=== PATIENT | female | born 1965 ===

== ENCOUNTER 2016-11-19 07:44 | Emergency (ER) | payer SELFPAY ==
[2016-11-19] MEDS ORDERED: TOBRAMYCIN 0.3% - 5 ML EYE DROPS EACH EYE ONE (07:57)
[2016-11-19] MEDS ORDERED: FLUORESCEIN 1 MG EYE STRIP RIGHT EYE ONE (07:57)
[2016-11-19] MEDS ORDERED: Tetracaine Ophth Soln 0.5% 40 DRP/4 ML BOTTLE RIGHT EYE ONE (07:57)
[2016-11-19 08:08] VITALS: RESP 16; TEMP 98.3
[2016-11-19] MEDS ORDERED: KETOROLAC 60 MG/2 ML VIAL IM ONE (08:17)
--- NOTE | 2016-11-19 08:24 | PDOC ---
Eye Complaint HPI - General Chief Complaint: Eye Problem / Injury Stated Complaint: right eye pain Date Seen by Provider: 11/19/16 Time Seen by Provider: 08:00 Source: POSITIVE: Patient Exam Limitations: POSITIVE: No limitations Nurse's Notes Reviewed & Considered: Yes - History of Present Illness Initial Comments: This pleasant 51-year-old female comes in today with a chief complaint of right eye pain. Patient awoke this morning with increased erythema of her right eye, tearing, and pain with throbbing. She does have photophobia. 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 She is also complaining of left ankle pain. She had an ankle fracture in June , and was placed into a walking boot. A one-week ago while working at [employer], she felt a pop in her ankle while in her boot. Since then she has had throbbing pain in her ankle. She denies any fever chills or sweats, nausea vomiting or diarrhea, no chest pain or shortness of breath, no cough, no abdominal pain, no myalgias, no hematuria or dysuria, no rashes. Have you received a tetanus shot in the past 10 years?: Yes Location: Right Eye Timing: REPORTS: Abrupt Duration: <24 hours Severity: Moderate Quality: REPORTS: Burning, Throbbing, Itching Recent Injury: REPORTS: No Associated Symptoms: REPORTS: Pain, Burning, Itching, Sensitivity to Light, Redness, Foreign Body Sensation Context: REPORTS: [place] [facility] Location at Time of Onset: REPORTS: Home Similar Symptoms Previously: Yes (L eye 5 yr ago resulting in ulcer, herniation and enucleation) - Patient Home Medications Home Medications: Home Medications NK [No Home Medications Reported] 11/19/16 - Patient Allergies Allergies/Adverse Reactions: Allergies Allergy/AdvReac Type Severity Reaction Status Date / Time No Known Allergies Allergy Unverified 11/19/16 07:45 Past Medical History - heen HEENT History: Other (please comment) Additional HEENT History: LEFT CORNEAL ULCER HERNIATION. LEFT EYE REMOVED Cardiovascular History: Denies History Respiratory History: Denies History Gastrointestinal History: Denies History Genitourinary History: Denies History Endocrine History: Denies History Musculoskeletal History: Denies History Prosthesis or Implant: No Neurological History: Denies History Blood Disorders: Denies History Psychiatric History: Denies History History of Sexually Transmitted Diseases: No Female Reproductive History: Other (please comment) Additional Female Reproductive History: TUBAL LIGATION LMP: 09/2016 Obstetrical History: Denies History Cancer History: Denies History In Past Year Been Physically Harmed or Verbally Threatened: No History of MDRO: No History of Other Communicable Diseases: No Tobacco Use: Current Every Day Smoker Alcohol Use: None Substance Use Type: None Anesthesia Reactions: No Malignant Hyperthermia: No Family History of Malignant Hyperthermia: No Significant Family History: No pertinent family hx ROS Constitution: REPORTS: Denies Symptoms Cardiovascular: REPORTS: Denies Cardiac Symptoms Respiratory: REPORTS: Denies Resp Symptoms Neurological: REPORTS: Denies Neuro Symptoms Gastrointestinal: REPORTS: Denies GI Symptoms Endocrine: REPORTS: Denies Symptoms Musculoskeletal: REPORTS: Joint Pain (Left ankle pain) Genitourinary: REPORTS: Denies Symptoms Eyes: REPORTS: Eye Pain (rt eye), Red Eyes, Itching Eyes, Eye Drainage ENT: REPORTS: Denies Symptoms Skin: REPORTS: Denies Skin Symptoms Lympathic: REPORTS: Denies Lympathic Symptoms Immunologic: POSITIVE: Denies Symptoms Psychiatric: POSITIVE: Denies Psych Symptoms Eye Complaint Physical Exam - General Appearance General Appearance: POSITIVE: Alert, Cooperative, No Acute Distress, No Evidence of Trauma, Other (Patient also complaining of left ankle pain. Her ankle is normal in appearance, no swelling, no bruising, no erythema. There is no tenderness to palpation.) - Visual Acuity / Pupil Size Pupil Size: 5 mm: Right - HEENT Head / Face: POSITIVE: Atraumatic, Normal Inspection, No Facial Swelling Eyes: POSITIVE: Inspection Normal, EOM's Intact, Eyelids Uninjured, Fluorescein Exam Normal, No Nystagmus, No Globe Trauma, Sclera Normal, Normal Corneal Inspection, Other (Left eye enucleation) Ears: POSITIVE: Ears Normal Inspection, Auricle Normal Nose: POSITIVE: Inspection Normal, No Apparent Trauma, Nares Normal, No CSF Leak Oropharynx: POSITIVE: External Inspection Nml, Pharynx Inspect. Nml, Airway Intact, Voice Normal, Moist Mucous Membranes, No Oral Injury, Lips Normal, Gums Normal, No Drooling, No Thrush, Normal Gag Reflex Dental: POSITIVE: No Dental Injury - Skin Skin: POSITIVE: Normal Color, No Skin Rash - Respiratory / Cardiovascular Respiratory / CVS: POSITIVE: No Respiratory Distress Peripheral Pulses: Dorsalis-pedis (R): 4+ Procedures - Laceration/Wound Repair Did patient have a laceration repair: No Eye Complaint Progress - Results Reviewed by me Xrays/CTs/US Reviewed by me: Yes Discussed with Radiologist: Yes - Patient's Progress Re-Examine Time:: 09:05 Status: POSITIVE: Improved MDM / ED Course: Patient was evaluated. X-ray of her left ankle was obtained. She received tetracaine and Tobrex ophthalmic drops.. Assessment: #1 conjunctivitis versus uveitis. #2 left ankle pain. Plan: TobraDex ophthalmic drops every 4 hours. Follow-up with Dr. Venegas in [facility] today. - Consult Consult (If Yes, Name of Consulting MD & Time Called): Yes (Dr. Armin Venegas, [facility], [id number]) Consulting MD will see pt:: POSITIVE: In Office Counseled: POSITIVE: Patient, RE: Radiology Results, RE: DX, RE: Need for F/U Patient Care Time - Estimated PCT Patient Care Time (In Minutes): 20 Vital Signs - Recent Vital Signs Vital Signs: Vital Signs (Last 8 hours) Temp Pulse Pulse Resp BP Pulse Ox 11/19/16 07:53 98.3 F 70 16 136/85 100 11/19/16 07:44 98.3 F 70 14 136/85 100 - VS Reviewed Vital Signs Reviewed: Yes Discharge Clinical Impression: Blindness of one eye, Eye infection Discharge Disposition: Discharged to Home Condition: Stable Patient Instructions Given at Discharge: Conjunctivitis (ED)
--- NOTE | 2016-11-19 08:50 | DI ---
XR ANKLE COMPLETE MIN 3VW,11/19/2016 8:17 AM: Clinical History: Left ankle injury. Previous Exam: None at this facility. Findings: 3 views of the left ankle are obtained, and demonstrate anatomic alignment without fractures. There i s mild enthesopathy at the insertion of the Achilles tendon and the plantar fascia. Impression: No fractures.
== END 2016-11-19 09:15 | disposition home or self-care (01) ==
LOC: ER 07:44
DX: H44.001 Unspecified purulent endophthalmitis, right eye (principal); H54.41 Blindness, right eye, normal vision left eye; H53.141 Visual discomfort, right eye; M25.572 Pain in left ankle and joints of left foot; H57.11 Ocular pain, right eye
CPT/HCPCS: 73610; 96374; 99283 ×2; J1885

== ENCOUNTER 2018-04-01 12:33 | Observation (INO) ==
[~2018-04-01 12:33] MED LIST: CefOXitin Inj 2 GM in Sodium Chloride 0.9% 100 ML IV ONE; LIDOCAINE W/ SODIUM BICARB 0.5 ML SYR ONE; LIDOCAINE W/ SODIUM BICARB 0.5 ML SYR SUBD PRN; Lactated Ringers 2,000 ML PRIMARY IV ONE; Nasal Sanitizer POPSWAB ampule 3 AMP (Nozin) PREOP DOSE ENOS SCH; Sodium Chloride 0.9% 100 ML IV ONE
[2018-04-01 12:52] LABS: BILIRUBIN,URINE NEGATIVE (NEG); CLARITY,URINE CLEAR (CLEAR); COLOR,URINE YELLOW (Y); GLUCOSE, URINE (UA) NEGATIVE (NEG); OCCULT BLOOD,URINE Trace-intact (NEG); PROTEIN,URINE NEGATIVE (NEG); UROBILINOGEN,URINE 0.2 EU/dL (0.2)
[2018-04-01 12:56] LABS: RBC,URINE 0-1 /hpf; SQUAMOUS EPITHELIAL CELL,UR MODERATE; URINE SAMPLE TYPE CLEAN CATCH URINE
[2018-04-01] MEDS: Lactated Ringers 1,000 ML PRIMARY IV SCH ×3 (13:00→21:06)
[2018-04-01 13:22] LABS: Hemoglobin [HGB] 11.8 g/dL (12.0-16.0)
[2018-04-01] MEDS ORDERED: PROPOFOL 10 MG/1 ML (200 MG/20 ML) VIAL IV ONE (14:08)
[2018-04-01] MEDS ORDERED: fentaNYL Inj 250 MCG/5 ML VIAL ONE (14:08)
[2018-04-01] MEDS ORDERED: MIDAZOLAM HCL 2 MG/2 ML VIAL ONE (14:08)
[2018-04-01] MEDS ORDERED: LIDOCAINE MPF 2% - 5 ML (20 MG/1 ML) ONE (14:08)
[2018-04-01] MEDS ORDERED: ROCURONIUM 10 MG/1 ML - 5 ML VIAL IVP ONE (14:09)
[2018-04-01] MEDS ORDERED: LIDOCAINE HCL 2 % 10 ML JELLY URO-JECT TOPICAL ONE ×2 (15:21→16:22)
[2018-04-01] MEDS ORDERED: BUPIVACAINE 0.5% W/ EPI - 10 ML VIAL ONE (15:21)
[2018-04-01] MEDS ORDERED: Opium-Belladonna 30-16.2mg 1 EACH SUPP.RECT RECTAL ONE ×2 (15:22→16:22)
[2018-04-01] MEDS ORDERED: KETAMINE 100 MG/1 ML - 5 ML ONE (16:21)
[2018-04-01] MEDS ORDERED: Lactated Ringers 1,000 ML PRIMARY IV ONE (16:43)
[2018-04-01] MEDS ORDERED: ONDANSETRON 4 MG/2 ML VIAL ONE (16:57)
[2018-04-01] MEDS ORDERED: KETOROLAC 30 MG/1 ML VIAL ONE (16:57)
[2018-04-01] MEDS ORDERED: SUGAMMADEX SODIUM 200 MG/2 ML VIAL IV ONE (17:21)
[2018-04-01] MEDS ORDERED: oxyCODONE-ACETAMINOPHEN 5-325 TAB PO PRN (17:25)
[2018-04-01] MEDS ORDERED: Ondansetron ODT Tab 8 MG TAB PO PRN (17:25)
[2018-04-01] MEDS ORDERED: IBUPROFEN 800 MG TABLET PO PRN (17:25)
[2018-04-01] MEDS ORDERED: LIDOCAINE HCL 2 % 10 ML JELLY URO-JECT TOPICAL PRN (17:25)
--- NOTE | 2018-04-01 17:25 | OB.OP.NOTE ---
Operative Report Surgeon: Dr. 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 Tubes s/p BTL. Normal left ovary. Right ovary with a 3 cm simple cyst containing straw colored fluid. No visible evidence of bowel, bladder, or ureter injury. Adhesions of omentum to the anterior abdominal wall surrounding the umbilicus. At cysto, both ureters were seen to eject urine and the bladder was intact. Indications for the Procedure: MMR Description of Procedure: See dictated operative report. Plan: Routine post op care and discharge to home.
[2018-04-01] MEDS ORDERED: fentaNYL Inj 100 MCG/2 ML VIAL IVP PRN (17:52)
[2018-04-01] MEDS ORDERED: PROMETHAZINE 25 MG/1 ML VIAL IM PRN (17:52)
[2018-04-01] MEDS ORDERED: LIDOCAINE W/ SODIUM BICARB 0.5 ML SYR SUBD PRN (17:52)
--- NOTE | 2018-04-01 17:54 | CRNA.PROGR ---
Anesthesia Recovery Phase I - Post Anesthesia Evaluation Patient's Condition on Arrival in Phase I: Stable
--- NOTE | 2018-04-01 17:54 | CRNA.PROGR ---
Anesthesia Time - Procedure/Recovery Time Start Date: 04/01/18 End Date: 04/01/18 Anesthesia : Time In: 15:44 Anesthesia : Time Out: 17:35 Anesthesia : Total Time: 111 - Total Anesthesia Time Total Anesthesia Time (minutes): 111 - Other Weight: 64.954 kg Height: 5 ft 4 in Body Mass Index (BMI): 24.5 Physical Status: P2 Anesthesia Type: General Anesthesia : ET
[2018-04-01] MEDS: HYDROmorphone 2 MG/1 ML IVP PRN ×2 (18:04→18:09)
[2018-04-01] MEDS ORDERED: HYDROmorphone 2 MG/1 ML ONE (18:05)
[2018-04-01] MEDS: KETOROLAC 15 MG/1 ML VIAL IVP SCH ×2 (19:16→23:38)
[2018-04-01] MEDS: DOCUSATE 100 MG CAPSULE PO SCH (21:06)
[2018-04-02] MEDS: Lactated Ringers 1,000 ML PRIMARY IV SCH (05:04)
[2018-04-02] MEDS: KETOROLAC 15 MG/1 ML VIAL IVP SCH (05:05)
--- NOTE | 2018-04-02 07:52 | DCSUMMARY ---
Hospitalization Summary Admit Date: 04/01/18 Discharge Date: 04/02/18 Primary Diagnosis:: MMR Hospital Course: The patient had an uncomplicated robotic hysterectomy/BSO which finished late in the afternoon. Therefore, she was kept overnight for observation and discharged to home in good condition. F/u 2 weeks. Exam - Vitals Vital Signs: Vital Signs Temperature 97.0 F Temperature Source Temporal Artery Scan Pulse Rate [Pulse Oximeter] 61 Pulse Rate 52 Respiratory Rate 16 Blood Pressure [Left Arm] 92/48 Blood Pressure 98/62 Pulse Ox 94 Oxygen Flow Rate 2 Oxygen Delivery Method Room Air Height 5 ft 4 in Weight 143 lb
--- NOTE | 2018-04-02 07:53 | PDOC(PROG) ---
Subjective Post Op Day: 1 Pain Management: PO [place] Catheter: No Flatus: Yes Diet: Regular Ambulating: Yes Concerns / Additional Information: Doing well this AM. Not much pain. No complaints. Ambulating and voiding well. Ready for discharge. Assesstment / Plan Assessment / Plan: POD 1, doing well. Discharge to home.
[2018-04-02] MEDS: DOCUSATE 100 MG CAPSULE PO SCH (08:57)
[2018-04-02] MEDS ORDERED: Influenza 18-19 Vaccine (6mo+) 60 MCG/0.5 ML SYRINGE IM ONE (09:00)
[2018-04-09 17:32] VITALS: BP 88/54; RESP 18; TEMP 97.9; O2SAT 94
== END 2018-04-02 09:30 | disposition home or self-care (01) ==
LOC: OR 12:33 → MED/SURG 12:33
PROVIDERS: ADMIT Obstetrics & Gynecology; ATTEND Obstetrics & Gynecology